=== PATIENT | male | born 1985 | race Caucasian/White ===

== ENCOUNTER 2018-07-19 16:28 | Emergency (ER) | payer MEDICARE, OTHER ==
[2018-07-19] MEDS: SOD CHLORIDE 0.9% 1,000 ML IV (17:30)
[2018-07-19] MEDS: LORAZEPAM 2 MG INJ IV (17:31)
[2018-07-19] MEDS: DIPHENHYDRAMINE 50 MG INJ IV (17:31)
[2018-07-19 17:33] LABS: ADD MAN DIFF? NO
[2018-07-19 17:34] LABS: BASOPHIL # 0.1 10^3/ul (0.0-0.1); BASOPHILS % 0.8 % (0.0-2.0); EOSINOPHILS # 0.1 10^3/ul (0.0-0.5); EOSINOPHILS % 0.9 % (0.0-7.0); HEMATOCRIT 40.9 % (42.0-52.0); HEMOGLOBIN 13.3 g/dl (14.0-18.0); LYMPHOCYTES # 1.7 10^3/ul (0.8-2.9); LYMPHOCYTES % 17.2 % (15.0-51.0); MEAN CORPUSCULAR HEMOGLOBIN 29.2 pg (29.0-33.0); MEAN CORPUSCULAR HGB CONC 32.5 g/dl (32.0-37.0); MEAN CORPUSCULAR VOLUME 89.9 fl (82.0-101.0); MONOCYTE # 0.8 10^3/ul (0.3-0.9); MONOCYTES % 8.4 % (0.0-11.0); NEUTROPHIL # 7.2 10^3/ul (1.6-7.5); NEUTROPHILS % 72.3 % (39.0-77.0); PLATELET COUNT 452 10^3/UL (140-415); RED BLOOD COUNT 4.55 10^6/ul (4.70-6.10); RED CELL DISTRIBUTION WIDTH 17.4 % (11.5-14.5)
[2018-07-19 18:02] LABS: ALANINE AMINOTRANSFERASE 32 IU/L (13-69); ALBUMIN 3.8 g/dl (3.3-4.9); ALBUMIN/GLOBULIN RATIO 1.26; ALKALINE PHOSPHATASE 166 IU/L (42-121); ANION GAP 9 (8-16); ASPARTATE AMINO TRANSFERASE 39 IU/L (15-46); BILIRUBIN,INDIRECT 0.3 mg/dl (0-1.1); BILIRUBIN,TOTAL 0.3 mg/dl (0.2-1.3); BLOOD UREA NITROGEN 11 mg/dl (7-20); CALCIUM 9.1 mg/dl (8.4-10.2); CARBON DIOXIDE 29 mmol/L (21-31); CHLORIDE 107 mmol/L (97-110); CREATININE 0.92 mg/dl (0.61-1.24); GLUCOSE 91 mg/dl (70-220); LIPASE 38 U/L (23-300); POTASSIUM 4.3 mmol/L (3.5-5.1); SODIUM 141 mmol/L (135-144); TOTAL PROTEIN 6.8 g/dl (6.1-8.1)
[2018-07-19 18:03] LABS: LACTIC ACID 0.7 mmol/L (0.5-2.0)
[2018-07-19 18:03] LABS: AMMONIA 10 umol/l (9-30)
== END 2018-07-19 19:29 | disposition home or self-care (01) ==
LOC: E/R 16:28
DX: F10.230 Alcohol dependence with withdrawal, uncomplicated (principal); C25.9 Malignant neoplasm of pancreas, unspecified
CPT/HCPCS: 36415; 80053; 82140; 83605; 83690; 85025; 96374; 96375; 99284-25

== ENCOUNTER 2018-07-25 15:06 | Emergency (ER) | payer MEDICARE, OTHER ==
[2018-07-25] MEDS: LORAZEPAM 1 MG TAB PO (17:47)
[2018-07-25] MEDS: DIPHENHYDRAMINE 25 MG CAP PO (17:49)
== END 2018-07-25 18:53 | disposition home or self-care (01) ==
LOC: FTE 15:06
DX: R25.1 Tremor, unspecified (principal); C25.9 Malignant neoplasm of pancreas, unspecified; F17.210 Nicotine dependence, cigarettes, uncomplicated
CPT/HCPCS: 99283